=== PATIENT | female | born 1995 | race Two or more races ===

== ENCOUNTER → 2016-09-02 | Outpatient (CLI) | payer OTHER ==
--- NOTE | ~2016-09-02 | MR104 ---
[facility] A Service of [facility] RADIOLOGY TEXT RESULTS PATIENT: HERVE ANDERSON LOCATION: [facility] : [birth year] UNIT #: [id number] AGE: [address]: CAITY TURNER MD SEX: F ORDER DR: [id number] [facility]. [place], [place] [address] [id number] O MR#: [id number] Acc #: [id number] NAME: HERVE ANDERSON : 1995 SEX: F STUDY DATE/TIME: 09/02/2016 10:42 UNIT: [facility] ROOM: STUDY DESCRIPTION: MR Knee Wo Contrast Rt Attending Physician: Caity Turner M.D. Referring Physician: Caity Turner M.D. Ordering Physician: Caity Turner M.D. Primary Care Physician: Caity Turner M.D. MRI CENTER REPORT This report is preliminary unless electronic signature is present. EXAM Right knee MRI without contrast, 09/02/2016 HISTORY A 21-year-old female with right knee pain since 2013. No specific injury. No prior right knee surgery COMPARISON STUDIES None. TECHNIQUE Routine unenhanced multiplanar, multisequence high field MR imaging of the right knee was performed. FINDINGS There is a bucket-handle tear of the lateral meniscus. The bucket-handle fragment is flipped into the lateral aspect of the intercondylar notch. This involves a majority of the posterior horn of the lateral meniscus. Medial meniscus is intact. Cruciate and collateral ligaments are intact. Extensor mechanism is intact. No significant joint effusion. There is a very small popliteal cyst. Patellofemoral articular cartilage appears grossly intact allowing for motion limitations. Medial and lateral compartment articular cartilage appears intact. Bone marrow signal is within expected limits. Visualized musculature is unremarkable. [facility] A Service of [facility] RADIOLOGY TEXT RESULTS PATIENT: HERVE ANDERSON LOCATION: [facility] : 93 UNIT #: [id number] AGE: [address]: CAITY TURNER MD SEX: F ORDER DR: IMPRESSION 1. Bucket-handle tear of the lateral meniscus, which involves a significant portion of the posterior horn. The bucket-handle fragment is flipped into the lateral aspect of the intercondylar notch. 2. No acute ligament injury. 3. No evidence of significant articular cartilage loss. 4. Very small popliteal cyst Dictated by... Kwan Quevedo M.D. THIS IS AN ELECTRONICALLY VERIFIED REPORT Kwan Quevedo M.D. at 09/02/2016 11:11 PM Javi TD: 09/02/2016 23:02 JOB #: [id number] MRI CENTER REPORT Page 1 of 1 COPY
== END | disposition home or self-care (01) ==
LOC: CMRI 09:34
DX: M25.561 Pain in right knee (principal); S83.252A Bucket-handle tear of lateral meniscus, current injury, left knee, initial encounter
CPT/HCPCS: 73721

== ENCOUNTER 2016-10-26 02:14 | Emergency (ER) | payer OTHER ==
--- NOTE | ~2016-10-26 | CR72 ---
[facility] A Service of [facility] RADIOLOGY TEXT RESULTS PATIENT: HERVE ANDERSON LOCATION: [facility] : [birth year] UNIT #: [id number] AGE: [address]: Dorothy Doyle APRN SEX: F ORDER DR: [id number] [facility] [address] [place], [place] [address] [id number] MR#: [id number] Acc #: [id number] NAME: HERVE ANDERSON : 1995 SEX: F STUDY DATE/TIME: 10/26/2016 5:55 UNIT: [facility] ROOM: STUDY DESCRIPTION: CR Chest Single View Portable Attending Physician: Dorothy Doyle A.P.R.N. Ordering Physician: Dorothy Doyle A.P.R.N. Primary Care Physician: Caity Turner M.D. MEDICAL IMAGING REPORT This report is preliminary unless electronic signature is present EXAM Portable chest 10/26/2016 HISTORY 21-year-old female with shortness of air beginning today. COMPARISON None. FINDINGS Frontal chest demonstrates clear lungs. No pleural effusion or pneumothorax. Heart size mildly enlarged. Mediastinum and pulmonary vasculature unremarkable. IMPRESSION Mild cardiomegaly. No other acute chest findings. Dictated by... Kwan Quevedo M.D. THIS IS AN ELECTRONICALLY VERIFIED REPORT Kwan Quevedo M.D. at 10/27/2016 7:17 AM SAM/rosalee TD: 10/26/2016 10:31 JOB #: [id number] MEDICAL IMAGING REPORT Page 1 of 1 COPY
--- NOTE | ~2016-10-26 | EKG ---
PATIENT: HERVE ANDERSON UNIT #: [id number] Ventricular Rate: 74 BPM Atrial Rate: 74 BPM P-R Interval: 122 ms QRS Duration: 88 ms Q-T Interval: 386 ms QTC Calculation(Bezet): 428 ms P Jelm: 72 degrees Calculated R Jelm: 71 degrees Calculated T Jelm: 69 degrees Diagnosis Line: Normal sinus rhythm with sinus arrhythmia Diagnosis Line: Possible Left atrial enlargement Diagnosis Line: Borderline ECG Diagnosis Line: No previous ECGs available Diagnosis Line: Confirmed by JODY CAMEJO MD ([id number]) on Diagnosis Line: 10/26/2016 11:58:29 AM INTERPRETING MD: NELL BURNS
[2016-10-26 03:35] LABS: BASOPHIL% 1.1 % (0-2.5); DIFF IND YES; EOSINOPHIL% 0.4 % (0.0-7.0); HEMATOCRIT 29.9 % (35.0-45.0); HEMOGLOBIN 9.2 gm/dL (12.0-16.0); LYMPHOCYTE# 1.6 X10e3 (1.0-3.5); LYMPHOCYTE% 35.1 % (17.0-45.0); MEAN CELL VOLUME 62.4 FL (83-96); MEAN CORPUSCULAR HEMOGLOBIN 19.2 PG (28-34); MEAN CORPUSCULAR HGB CONC 30.8 g/dL (30-36); MONOCYTE# 0.3 X10e3 (0-1.0); MONOCYTE% 7.2 % (3.0-12.0); NEUTROPHIL# 2.5 X10e3 (1.5-7.1); NEUTROPHIL% 56.2 % (40-75); PLATELET COUNT 385 X10e3 (140-420); RED BLOOD COUNT 4.79 X10e (3.90-5.30); RED CELL DISTRIBUTION WIDTH 20.4 % (11.0-15.5); WHITE BLOOD COUNT 4.5 X10e3 (4.0-10.5)
[2016-10-26 04:06] LABS: ALBUMIN SERUM 4.6 g/dL (3.5-5.0); BILIRUBIN,TOTAL 0.8 mg/dL (0.2-2.0); CALCIUM SERUM 9.8 mg/dL (8.4-10.2); CREATININE SERUM 0.6 mg/dL (0.6-1.4); GLOM FILT RATE Estimated 128.5 mL/min (>60); POTASSIUM 3.6 mmol/L (3.5-5.1); PROTEIN TOTAL SERUM 7.9 g/dL (6.0-8.3)
[2016-10-26 04:07] LABS: BILIRUBIN,INDIRECT 0.7 mg/dL (0.0-0.9)
[2016-10-26 04:08] LABS: BILIRUBIN, DIRECT 0.1 mg/dL (0.0-0.2)
[2016-10-26 04:17] LABS: PLATELET ESTIMATE NORMAL (NORMAL)
[2016-10-26 04:18] LABS: HYPOCHROMIA SL; OVALOCYTES PRESENT; POIKILOCYTOSIS MOD; TEAR DROP CELLS PRESENT
[2016-10-26 04:28] LABS: URINE SOURCE CLEAN CATCH
[2016-10-26 04:39] LABS: URINE APPEARANCE CLEAR; URINE BILIRUBIN NEG (NEG); URINE BLOOD NEG (NEG); URINE COLOR YELLOW; URINE GLUCOSE NEG (NEG); URINE KETONE NEG (NEG); URINE LEUKOCYTE ESTERASE TRACE (NEG); URINE NITRATE NEG (NEG); URINE PH 5.5 (5-8); URINE PROTEIN NEG (NEG); URINE SPECIFIC GRAVITY 1.006 (1.003-1.035); URINE UROBILINOGEN 0.2 MG/DL (NEG)
[2016-10-26 04:42] LABS: CULTURE INDICATED? YES; U HYALINE CASTS AUWI 0-2 /[LPF]; URBCS1 AUWI 0-2 /[HPF] (0-2); URINE BACTERIA AUWI 4+ (NEGATIVE); URINE SQUAMOUS EPITHELIAL CELL NONE SEEN /[HPF]; UWBCS1 AUWI 0-2 (0-5)
[2016-10-26 04:49] LABS: AMPHETAMINE NEG (NEG); BARBITURATES NEG (NEG); BENZODIAZEPINES NEG (NEG); COCAINE NEG (NEG); MARIJUANA NEG (NEG); OPIATES NEG (NEG); TRICYCLIC ANTIDEPRESSANTS NEG (NEG); U METHADONE NEG (NEG)
[2016-10-26 05:03] LABS: POC - CKMB <1.0 ng/mL (0.0-7.9); POC - TROPONIN <0.05 ng/mL (<=0.05)
== END 2016-10-26 06:59 | disposition home or self-care (01) ==
LOC: CED 02:14
PROVIDERS: Nurse Practitioner
DX: R55 Syncope and collapse (principal); N39.0 Urinary tract infection, site not specified
CPT/HCPCS: 36415; 71010; 80048; 80076; 80307; 81003; 82553; 82947; 84484; 84703; 85025; 87086; 87088; 87186; 93005; 96360; 99285; G0480